=== PATIENT | female | born 1940 | race Caucasian/White ===

== ENCOUNTER 2020-07-24 11:02 | Emergency (ER) | payer SELFPAY ==
[~2020-07-24] VITALS: Ht 167.6 cm; Wt 86.4 kg
[2020-07-24 11:03] VITALS: TEMP 98.3
[2020-07-24] MEDS ORDERED: PRINIVIL10 MG PO (11:09)
[2020-07-24] MEDS ORDERED: ASPIRIN 81M81 MG/TA2 PO (11:10)
[2020-07-24 12:19] LABS: BASO # 0.1 (0.0-0.2); BASO % 0.3 % (0.0-2.0); EOS # 0.2 (0.0-0.7); EOS % 0.9 % (0-4.0); GRAN # 11.6 (1.4-6.5); GRAN % 71.6 % (42.2-75.2); HEMATOCRIT 41.8 % (37.0-47.0); HEMOGLOBIN 14.1 g/dl (12.5-16.0); LYMPH # 3.1 (1.2-3.4); LYMPH % 19.1 % (20.0-51.0); MEAN CELL VOLUME 95 fl (80.0-100.0); MEAN CORPUSCULAR HEMOGLOBIN 32 pg (27.0-31.0); MEAN CORPUSCULAR HGB CONC 34 g/dl (33.0-37.0); MEAN PLATELET VOLUME 11.6 fl (7.4-10.4); MONO # 1.2 (0.1-0.6); MONO % 7.2 % (1.7-9.3); PLATELET COUNT 236 K/mm3 (130-400); RED BLOOD COUNT 4.42 M/mm3 (4.10-5.30)
[2020-07-24] MEDS ORDERED: ULTRAM 50MG TAB50 MG PO (13:18)
[2020-07-24 13:40] VITALS: BP 175/78; PULSE 103
== END 2020-07-24 13:40 | disposition home or self-care (01) ==
LOC: COL.ER 11:02
PROVIDERS: Physician Assistant
DX: S82.002A Unspecified fracture of left patella, initial encounter for closed fracture (principal); S20.212A Contusion of left front wall of thorax, initial encounter; S50.11XA Contusion of right forearm, initial encounter; I10 Essential (primary) hypertension; E03.9 Hypothyroidism, unspecified; Z79.82 Long term (current) use of aspirin; V43.52XA Car driver injured in collision with other type car in traffic accident, initial encounter
CPT/HCPCS: J7030; L1846